=== PATIENT | female | born 2000 | race Caucasian/White ===

== ENCOUNTER 2022-03-28 15:47 | Outpatient (RCR) | payer OTHER, SELFPAY | END 2022-06-26 23:59 | disposition home or self-care (01) | LOC: ANHLAB 15:47 | PROVIDERS: PCP Family Medicine; Visit Provider Advanced Practice Midwife | DX: O20.0 Threatened abortion (principal); Z3A.00 Weeks of gestation of pregnancy not specified | CPT/HCPCS: 36415; 84702; 85461 ==

== ENCOUNTER 2022-05-19 17:07 | Outpatient (CLI) | payer OTHER, SELFPAY ==
[2022-05-19 17:44] LABS: CRP < 0.5 mg/dL (<1.0)
[2022-05-19 17:45] LABS: Rheumatoid Factor < 8.6 IU/ML (<12)
== END 2022-05-19 17:08 | disposition home or self-care (01) ==
LOC: ANHLAB 17:09
PROVIDERS: PCP Family Medicine; Visit Provider Nurse Practitioner Family
DX: I73.00 Raynaud's syndrome without gangrene (principal)
CPT/HCPCS: 36415; 86038; 86039; 86140; 86430

== ENCOUNTER 2024-11-30 19:35 | Emergency (ER) | payer BC, SELFPAY ==
--- NOTE | ~2024-11-30 | XR_ITS ---
HISTORY: pain COMPARISON: None TECHNIQUE: 3 views of the right foot were performed FINDINGS: Likely avulsion fracture of the lateral distal margin of the proximal phalanx of the fifth toe. This is only minimally displaced, and does not extend into the articular surface. 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 The base of the fifth metatarsal is intact. No calcaneal spur is noted. Soft tissue swelling of the dorsum of the forefoot, consistent with the location of patient's injury. IMPRESSION: Small avulsion fracture of the lateral distal margin of the proximal phalanx of the fift h toe, without extension into the articular surface. Reviewed, dictated and finalized at location A. IMPRESSION: Small avulsion fracture of the lateral distal margin of the proxim al phalanx of the fifth toe, without extension into the articular surface.
--- NOTE | 2024-11-30 19:43 | ED_ITS ---
HPI - Extremity Injury (Lower) General Chief Complaint: Extremity Injury, Lower Stated Complaint: Right Foot Toe Pain Time Seen by Provider: 11/30/24 19:48 Source: patient, RN notes reviewed and old records reviewed Mode of arrival: ambulatory Limitations: no limitations History of Present Illness HPI Narrative: 24-year-old female presents to the [facility] with right foot pain, injury 1 week ago. Small amount of bruising noted to the MTPs 4 in 5. Patient reports that she has been taking ibuprofen Walks with a normal gait Related Data Home Medications ?Medication ?Instructions ?Recorded ?Confirmed ?Last Taken ?Type norethindrone 1 mg-ethinyl tablet 11/30/24 Unknown History estradiol 20 mcg (21)-iron 75 mg (7) tablet (09/23 (28)) Allergies Allergy/AdvReac Type Severity Reaction Status Date / Time No Known Allergies Allergy Verified 11/30/24 19:40 Review of Systems Review of Systems: All systems reviewed & are unremarkable except as noted in HPI and below Constitutional: Constitutional: Reports no additional constitutional complaints ENT: Reports system reviewed and no additional complaints, except as documented Cardiovascular: Cardiovascular: Reports no additional cardiovascular complaints, Denies chest pain and Denies dyspnea Respiratory: Respiratory: Reports no additional respiratory complaints, Denies chest congestion, Denies cough and Denies dyspnea Musculoskeletal: Musculoskeletal: Reports as per HPI Integumentary/Breasts: Skin/Breast: Reports system reviewed and no additional complaints, except as docu PMFSH Comments At the time of my signature, I reviewed and agree with the nursing past medical, surgical, social, and family history. There is no relevant family history pertinent to the patient complaint. Exam Const: General: cooperative, healthy appearing, comfortable, no acute distress, well developed, alert and well nourished Nutritional Appearance: well nourished Orientation/consciousness: patient oriented x3 Limitations: no limitations HENMT: Head: normal to inspection Eyes: General: appearance normal, both eyes and all related structures Alignment and Position: alignment normal Neck: Neck: normal visual inspection, full ROM, no lymphadenopathy and no meningeal signs Chest: Chest palpation & inspection: normal inspection of the chest Resp: Effort & Inspection: normal respiratory effort and able to speak in complete sentences Cardio: Rate: regular rate Skin: General skin exam: normal color and no rashes or lesions noted Neuro: General: patient oriented x3, gait normal, moves all extremities and no meningeal signs Cognition (Neuro): normal cognition Speech: normal speech Gait exam (Neuro): Normal gait present Extrem: General: normal to inspection, full ROM, capillary refill normal and normal gait Right lower extremity: foot Details: normal capillary refill, tenderness Location: of the dorsal foot and of another digit Location: the 4th digit, the 5th digit and at the MTP joint, toes with normal ROM, no edema and ecchymosis (Dorsal distal, distal for 5 metatarsals); no unusual warmth, no abrasion and no laceration Psych: Appearance: grossly normal and well kempt Mental Status: mental status grossly normal Speech and movement: Normal speech and movement present and Clear speech present Affect: normal affect Attitude: cooperative Course Course Level of Care: Express Care Visit Vital Signs Vital signs: Vital Signs Temperature 97.8 F 11/30/24 19:48 Pulse Rate 92 11/30/24 19:48 Respiratory Rate 20 11/30/24 19:48 Blood Pressure 134/74 11/30/24 19:48 Pulse Oximetry 97 11/30/24 19:48 Oxygen Delivery Room Air 11/30/24 19:48 Temperature 97.8 F 11/30/24 19:48 Pulse Rate 92 11/30/24 19:48 Respiratory Rate 20 11/30/24 19:48 Blood Pressure 134/74 11/30/24 19:48 Pulse Oximetry 97 11/30/24 19:48 Oxygen Delivery Room Air 11/30/24 19:48 Reviewed MDM - Extremity Injury (Lower) MDM Narrative Medical decision making narrative: Patient sitting comfortably in exam room. Nontoxic, vitals stable. Patient in no acute distress. Patient presents with 1 week history of right foot pain post fall. Slight bruising noted. No swelling noted. X-ray shows possible avulsion fracture of the 5th phalanx/toe Patient appropriate for outpatient treatment with postop shoe, priti taping, names for Podiatry given, encourage patient to follow-up with primary care provider Discharge instructions reviewed with patient, as well as provided in writing per nursing staff. The instructions also include specific and strict return/GO TO THE ER as well as f/u information. All questions have been answered, and the patient deny any further questions with discharge and discharge plan. Some parts of this dictation were generated by voice recognition software and may contain typographical and/or grammatical inaccuracies. Differential Diagnosis Differential diagnosis: Likely other (Foot contusion, toe contusion, toe fracture, foot fracture) Imaging Data Radiologist's impression: HISTORY: pain COMPARISON: None TECHNIQUE: 3 views of the right foot were performed FINDINGS: Likely avulsion fracture of the lateral distal margin of the proximal phalanx of the fifth toe. This is only minimally displaced, and does not extend into the articular surface. 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 The base of the fifth metatarsal is intact. No calcaneal spur is noted. Soft tissue swelling of the dorsum of the forefoot, consistent with the location of patient's injury. IMPRESSION: Small avulsion fracture of the lateral distal margin of the proximal phalanx of the fifth toe, without extension into the articular surface. Critical Care Time Critical Care Time Critical Care Time: No Discharge Plan Discharge Clinical Impression: Contusion of foot, right, Avulsion fracture, Closed fracture of fifth toe of right foot Patient Disposition: Home, Self-Care Condition: Stable Instructions: Antibiotic Form, Foot Contusion (ED) Additional Instructions: Wear postop shoe or Wear good supportive shoes at all times. Ice should be applied to help reduce swelling. It can be used for 20 to 30 minutes, every 2-3 hours while awake. Do not apply ice directly to your skin. You can alternate ibuprofen 600mg and Tylenol 650mg every 4 hours as needed for pain Please schedule a follow-up visit with your personal physician for further evaluation and treatment within 2 weeks especially if symptoms persist. For new or worsening symptoms go directly to the emergency room Patient Language: [place] Prescriptions: No Action norethindrone-e.estradiol-iron [09/23 (28)] 1 mg-20 mcg (21)/75 mg (7) tablet Follow-up/Referrals: Eduardo Page MD [Primary Care Provider] - 2 Weeks (express care follow up ) Frank Rico Jr., DPM [Physician] - Lei Freeman DPM [Physician] - Stand Alone Forms: Work/School Release IP Time of Disposition: 20:37
[2024-11-30 19:48] VITALS: BP 134/74; PULSE 92; RESP 20; TEMP 36.6; O2SAT 97
== END 2024-11-30 20:52 | disposition home or self-care (01) ==
PROVIDERS: Emergency Provider Nurse Practitioner; PCP Family Medicine
DX: S92.531A Displaced fracture of distal phalanx of right lesser toe(s), initial encounter for closed fracture (principal); S90.31XA Contusion of right foot, initial encounter; Z79.1 Long term (current) use of non-steroidal anti-inflammatories (NSAID); X58.XXXA Exposure to other specified factors, initial encounter
CPT/HCPCS: 73630; 99203; G0463